=== PATIENT | male | born 1990 | race African-American/Black ===

== ENCOUNTER 2017-05-02 13:18 | Emergency (ER) | payer SELFPAY ==
[~2017-05-02] VITALS: Ht 198.1 cm; Wt 140.0 kg
[2017-05-02 13:20] VITALS: BP 133/72; PULSE 97; RESP 16; TEMP 98.2; O2SAT 98
[2017-05-02] MEDS ORDERED: SODIUM CHLOR 0.9% 1000 ML INJ 1,000 ML IV ONE (13:40)
[2017-05-02] MEDS ORDERED: SODIUM CHLORIDE 0.9% FLUSH 10 ML FLUSH IVF PRN (13:45)
[2017-05-02] MEDS ORDERED: MORPHINE SULFATE 4 MG/ML INJ IV PUSH ONE (13:45)
[2017-05-02 14:06] VITALS: O2SAT 99
[2017-05-02 14:09] LABS: AUTOMATED NEUTROPHIL # 4.5 TH/MM3 (1.8-7.7); BASOPHIL % 0.7 % (0.0-2.0); EOSINOPHIL # 0.2 TH/MM3 (0-0.4); HEMATOCRIT 43.4 % (39.0-51.0); HEMO FLAGS DIFF FINAL; LYMPH % 25.4 % (9.0-44.0); LYMPHOCYTE # 1.8 TH/MM3 (1.0-4.8); MEAN CELL VOLUME 72.6 FL (80.0-100.0); MEAN CORPUSCULAR HEMOGLOBIN 23.2 PG (27.0-34.0); MONO % 8.5 % (0.0-8.0); NEUT % 62.4 % (16.0-70.0); PLATELET COUNT 298 TH/MM3 (150-450); RED BLOOD COUNT 5.98 MIL/MM3 (4.50-5.90); RED CELL DISTRIBUTION WIDTH 17.2 % (11.6-17.2); RETIC % 1.5 % (0.4-3.0); REVIEW FLAG FINAL; WHITE BLOOD COUNT 7.2 TH/MM3 (4.0-11.0)
[2017-05-02] MEDS ORDERED: diphenhydrAMINE HCL 50 MG/ML VIAL IV PUSH ONE (14:15)
--- NOTE | 2017-05-02 14:28 | PD ---
HPI Chief Complaint: Sickle Cell Time Seen by Provider: 13:33 Travel History International Travel<30 days: No Contact w/Intl Traveler<30days: No Traveled to known affect area: No History of Present Illness HPI 26-year-old male with reported history of sickle cell disease here with complaint of left leg pain and body aches. Patient states that for the last 2- 3 days he has felt a "flare coming on". Despite this he has not been drinking any fluids or taking any medications. States that over the last 2-3 days his left leg has become increasingly swollen and painful. He denies any recent travel, history of DVT or PE. No fevers, chills, chest pain or shortness of breath. Patient complains of bodyaches throughout the body, but this is most notable in the left leg that is the site of swelling. He denies any history of complications from his sickle cell, avascular necrosis, etc. PFSH Past Medical History Sickle Cell Disease: Yes Past Surgical History Surgical History: No Previous Surgery Social History Alcohol Use: No Tobacco Use: No Substance Use: No Allergies-Medications (Allergen,Severity, Reaction): Coded Allergies: No Known Allergies (Unverified , 05/02/17) Reported Meds & Prescriptions Reported Meds & Active Scripts Active No Active Prescriptions or Reported Medications Review of Systems Except as stated in HPI: all other systems reviewed are Neg Physical Exam Narrative GENERAL: Well-appearing male in no acute distress SKIN: Focused skin assessment warm/dry. HEAD: Normocephalic. EYES: No scleral icterus. No injection or drainage. ENT: Mucous membranes pink and moist. NECK: Supple CARDIOVASCULAR: Regular rate and rhythm. No murmur appreciated. RESPIRATORY: No accessory muscle use. Clear to auscultation. Breath sounds equal bilaterally. GASTROINTESTINAL: Abdomen soft, non-tender, nondistended. Obese MUSCULOSKELETAL: Left lower extremity with swelling primarily mid calf distally. This is minimally warm but there is no erythema or skin changes. Good distal sensation and pulses. The bony anatomy is unremarkable with full pain-free range of motion NEUROLOGICAL: Awake and alert.Normal speech. PSYCHIATRIC: Appropriate mood and affect; insight and judgment normal. Data Data Last Documented VS Vital Signs Date Time Temp Pulse Resp B/P Pulse Ox O2 Delivery O2 Flow Rate FiO2 05/02/17 14:06 99 Room Air 05/02/17 13:20 98.2 97 16 133/72 Orders Basic Metabolic Panel (Bmp) (05/02/17 13:40) Complete Blood Count With Diff (05/02/17 13:40) Retic Count (05/02/17 13:40) Iv Access Insert/Monitor (05/02/17 13:40) Oximetry (05/02/17 13:40) Sodium Chloride 0.9% Flush (Ns Flush) (05/02/17 13:45) Sodium Chlor 0.9% 1000 Ml Inj (Ns 1000 M (05/02/17 13:40) Morphine Inj (Morphine Inj) (05/02/17 13:45) Us Leg Venous Doppler (05/02/17 ) Diphenhydramine Inj (Benadryl Inj) (05/02/17 14:15) Labs Laboratory Tests Test 05/02/17 14:00 White Blood Count 7.2 TH/MM3 Red Blood Count 5.98 MIL/MM3 Hemoglobin 13.9 GM/DL Hematocrit 43.4 % Mean Corpuscular Volume 72.6 FL Mean Corpuscular Hemoglobin 23.2 PG Mean Corpuscular Hemoglobin 32.0 % Concent Red Cell Distribution Width 17.2 % Platelet Count 298 TH/MM3 Mean Platelet Volume 6.9 FL Neutrophils (%) (Auto) 62.4 % Lymphocytes (%) (Auto) 25.4 % Monocytes (%) (Auto) 8.5 % Eosinophils (%) (Auto) 3.0 % Basophils (%) (Auto) 0.7 % Neutrophils # (Auto) 4.5 TH/MM3 Lymphocytes # (Auto) 1.8 TH/MM3 Monocytes # (Auto) 0.6 TH/MM3 Eosinophils # (Auto) 0.2 TH/MM3 Basophils # (Auto) 0.0 TH/MM3 CBC Comment DIFF FINAL Differential Comment Reticulocyte Count 1.5 % Absolute Reticulocyte Count 86.9 MIL/L Sodium Level 140 MEQ/L Potassium Level 4.3 MEQ/L Chloride Level 105 MEQ/L Carbon Dioxide Level 28.8 MEQ/L Anion Gap 6 MEQ/L Blood Urea Nitrogen 13 MG/DL Creatinine 1.29 MG/DL Estimat Glomerular Filtration 80 ML/MIN Rate Random Glucose 97 MG/DL Calcium Level 9.4 MG/DL MDM Medical Decision Making Medical Screen Exam Complete: Yes Emergency Medical Condition: Yes Medical Record Reviewed: Yes Differential Diagnosis 26-year-old male with reported history of sickle cell here with 2-3 days of body aches and left-sided leg pain/swelling. Differential includes vaso- occlusive pain crisis, DVT, cellulitis, Whitehead cysts, dehydration, electrolyte abnormality. Clinically no evidence of acute chest syndrome, peripheral arterial disease. Narrative Course Patient placed on monitor, IV established and blood obtained. Given 1 L normal saline bolus, 4 mg morphine, 50 mg Benadryl. CBC, BMP and reticulocyte count notable for a surprisingly normal hemoglobin of 13.9. Duplex ultrasound of the left lower extremity showed no evidence of DVT. Patient felt improved and will be discharged home. Diagnosis Primary Impression: Left leg pain Referrals: Rashawn Rivas MD call for appointment Additional Instructions: Drink plenty of fluids. Call to establish local therapist occupational for her sickle cell management. Med/Other Pt SpecificInfo: No Change to Meds Scripts No Active Prescriptions or Reported Meds Disposition: 01 DISCHARGE HOME Condition: Stable Nupur Lozano MD May 02, 2017 14:28
--- NOTE | 2017-05-02 14:45 | RADRPT ---
EXAM DATE/TIME: 05/02/2017 14:16 [facility] COMPARISON: No previous studies available for comparison. INDICATIONS : Left leg swelling. MEDICAL HISTORY : Sickle Cell disease. SURGICAL HISTORY : None. ENCOUNTER: Initial ACUITY: 4 - 6 days PAIN SCORE: 7/10 LOCATION: Left leg. TECHNIQUE: Venous ultrasound of the leg was performed from the inguinal ligament to the proximal calf. Real-mendez e, color Doppler and spectral tracing, compression and augmentation techniques were used. FINDINGS: There is normal compressibility of the deep venous system from the inguinal region to the proximal ca lf. No echogenic clot is seen in the lumen of the common femoral, femoral, popliteal, and posterior tibial veins. There is a normal response of the venous system to proximal and distal augmentation an d respiration. CONCLUSION: No evidence of deep venous thrombosis within the left lower extremity. Tyrese Whitehead MD on May 02, 2017 at 14:42 Board Certified Radiologist. This report was verified electronically.
[2017-05-02 14:52] LABS: BICARBONATE 28.8 MEQ/L (21.0-32.0)
[2017-05-02 14:54] LABS: POTASSIUM 4.3 MEQ/L (3.5-5.1)
--- NOTE | 2017-05-02 17:55 | EKG ---
Date Performed: 05/02/2017 Time Performed: 14:55:46 PTAGE: 26 years EKG: Sinus rhythm NONSPECIFIC ST ELEVATION BORDERLINE ECG NO PREVIOUS TRACING DOCTOR: Forest Ceja Interpretating Date/Time 05/02/2017 17:54:29
== END 2017-05-02 15:31 | disposition home or self-care (01) ==
LOC: NEPD 13:18
DX: M79.605 Pain in left leg (principal); D57.1 Sickle-cell disease without crisis; R52 Pain, unspecified
CPT/HCPCS: 80048; 85025; 85044; 93005; 93971; 96374; 96375; 99285; J1200; J2270; J7030